=== PATIENT | male | born 1995 | race African-American/Black ===

== ENCOUNTER 2020-09-16 09:28 | Emergency (ER) | payer MEDICAID ==
[~2020-09-16] VITALS: Ht 167.6 cm; Wt 63.6 kg
[2020-09-16 09:36] VITALS: BP 124/69; Ht 167.6 cm; Wt 63.6 kg
== END 2020-09-16 10:27 | disposition home or self-care (01) ==
LOC: D.ER 09:28
DX: S90.415A Abrasion, left lesser toe(s), initial encounter (principal); X58.XXXA Exposure to other specified factors, initial encounter

== ENCOUNTER 2020-10-29 22:11 | Emergency (ER) | payer MEDICAID ==
[~2020-10-29] VITALS: Ht 167.6 cm; Wt 65.8 kg
[2020-10-29 22:15] VITALS: Ht 167.6 cm; Wt 65.8 kg
[2020-10-29] MEDS ORDERED: DICLOFENAC SODI50 MG PO (23:55)
[2020-10-29] MEDS ORDERED: METHOCARBAMOL500 MG PO (23:55)
[2020-10-30 01:27] VITALS: BP 126/80
== END 2020-10-30 01:25 | disposition home or self-care (01) ==
LOC: D.ER 22:11
DX: S39.012A Strain of muscle, fascia and tendon of lower back, initial encounter (principal); S29.019A Strain of muscle and tendon of unspecified wall of thorax, initial encounter; S16.1XXA Strain of muscle, fascia and tendon at neck level, initial encounter; V49.00XA Driver injured in collision with unspecified motor vehicles in nontraffic accident, initial encounter; S06.0X0A Concussion without loss of consciousness, initial encounter